=== PATIENT | male | born 1980 | race Caucasian/White ===

== ENCOUNTER 2023-02-06 10:32 | Emergency (ER) | payer MEDICARE, MEDICAID ==
[~2023-02-06] VITALS: Ht 172.7 cm; Wt 59.0 kg
[2023-02-06 11:01] VITALS: BP 143/96; PULSE 130; RESP 20; TEMP 98.3; O2SAT 99
[2023-02-06] MEDS ORDERED: CEFTRIAXONE 1GM PREMIX 50 ML IV ONE (12:15)
== END 2023-02-06 20:05 | disposition left against medical advice (07) ==
LOC: ER 10:32 → EDBEDREQTM 12:54 → EDBEDREQ 12:54 → EDBEDREQTM 12:55 → EDBEDREQSVC 12:55 → CANBEDREQ 16:11 → EDBEDREQ 19:39 → CANBEDREQ 19:52 → ER 20:05
DX: T83.098A Other mechanical complication of other urinary catheter, initial encounter (principal); N39.0 Urinary tract infection, site not specified; Z88.8 Allergy status to other drugs, medicaments and biological substances; Z98.890 Other specified postprocedural states
CPT/HCPCS: 99283; 99284